=== PATIENT | female | born 1960 | race African-American/Black ===

== ENCOUNTER 2018-11-15 17:38 | Emergency (ER) | payer MEDICAID, OTHER ==
[~2018-11-15] VITALS: Ht 160 cm; Wt 108.9 kg
--- NOTE | 2018-11-15 17:48 | NUR ---
CALLED IN WAITING ROOM. NO ANSWER.
--- NOTE | 2018-11-15 18:02 | NUR ---
"C/O OF DEPRESSION, SI W/ PLAN OF CUTTING WRIST X 2 WEEKS" PT TO BED 13, -SOB, NAD NOTED, VSS, PENDING MD BENJAMIN
--- NOTE | 2018-11-15 18:10 | NUR ---
S/I PRECAUTIONS STARTED, SITTER AT BEDSIDE FOR SAFETY.
[2018-11-15 19:08] LABS: BASOPHILS # (AUTO) 0.1 /CMM (0.0-0.2); BASOPHILS % (AUTO) 0.6 % (0.0-2.0); EOSINOPHILS % (AUTO) 0.1 % (0.0-6.0); HEMATOCRIT 37 % (33-45); HEMOGLOBIN 12.2 g/dL (11.5-14.8); LYMPHOCYTES # (AUTO) 0.9 /CMM (0.8-4.8); LYMPHOCYTES % (AUTO) 8.4 % (20.0-44.0); MEAN CORPUSCULAR HGB CONC 33 g/dl (31.0-36.0); MEAN CORPUSCULAR VOLUME 94 fL (82-100); MONOCYTES # (AUTO) 0.7 /CMM (0.1-1.30); MONOCYTES % (AUTO) 6.5 % (2.0-12.0); NEUTROPHILS % (AUTO) 84.4 % (43.0-81.0); PLATELET COUNT (AUTO) 219 /CMM (150-450); RED BLOOD CELL COUNT(AUTO) 3.96 MIL/uL (4.0-5.2); WHITE BLOOD COUNT (AUTO) 10.6 K/uL (4.3-11.0)
[2018-11-15 19:16] LABS: CALCIUM, SERUM 8.6 mg/dL (8.5-10.1); CARBON DIOXIDE 27 mmol/L (21-32); CHLORIDE 106 mmol/L (98-107); CREATININE 0.8 mg/dL (0.6-1.3); GLUCOSE 132 mg/dL (74-106); POTASSIUM 3.5 mmol/L (3.5-5.1); SODIUM SERUM 141 mmol/L (136-145); UREA NITROGEN, BLOOD 15 mg/dL (7-18)
[2018-11-15 19:30] LABS: ALANINE AMINOTRANSFERASE 25 U/L (12-78); ALBUMIN 3.1 g/dL (3.4-5.0); ALKALINE PHOSPHATASE 53 U/L (46-116); ASPARTATE AMINOTRANSFERASE 14 U/L (15-37); BILIRUBIN,DIRECT 0.1 mg/dL (0.0-0.2); BILIRUBIN,TOTAL 0.2 mg/dL (0.2-1.0); TOTAL PROTEIN, SERUM 5.8 g/dL (6.4-8.2)
[2018-11-15 19:33] LABS: ACETAMINOPHEN < 2 ug/ml (10-30); ALCOHOL, BLOOD < 3 mg/dL (0-0); SALICYLATE < 2.8 mg/dL (2.8-20.0)
[2018-11-15 20:10] LABS: APPEARANCE,URINE CLEAR (CLEAR); BILIRUBIN,URINE NEGATIVE (NEGATIVE); BLOOD, URINE NEGATIVE Ery/uL (NEGATIVE); COLOR,URINE YELLOW (YELLOW); KETONES,URINE NEGATIVE (NEGATIVE); LEUKOCYTE ESTERASE ,URINE NEGATIVE (NEGATIVE); NITRITE, URINE NEGATIVE (NEGATIVE); PROTEIN,URINE NEGATIVE (NEGATIVE); UGLUCOSE NEGATIVE (NEGATIVE)
[2018-11-15 20:33] LABS: BACTERIA,URINE 1+ /HPF (None Seen); CALCIUM OXALATE CRYSTALS,UR Few /HPF (None Seen); SQUAMOUS EPITHELIAL CELL,UR 0-2 /HPF (None Seen); WBC,URINE 0-2 /HPF (0-3)
--- NOTE | 2018-11-16 04:48 | NUR ---
PT SLEEPING IN [place]. NO SIGNS OF DISTRESS NOTED. PT VITAL SIGNS STABLE. WILL CONT TO MONITOR PT.
--- NOTE | 2018-11-16 12:24 | NUR ---
CALLED FOR FOOD TRAY
--- NOTE | 2018-11-16 13:15 | NUR ---
PER INTAKE ETELVINA PT CANNOT BE ACCEPTED AT [facility] DUE TO MEDICAL HX, SHE WILL CONTACT [facility] WITH TRANSFER REQUEST AND CALL [facility] BACK
[2018-11-16] MEDS ORDERED: ALBUTEROL FS 2.5 MG/3 ML VIAL.NEB NEB ONE (13:30)
[2018-11-16] MEDS ORDERED: ALBUTEROL FS 2.5 MG/3 ML VIAL.NEB ONE (13:38)
--- NOTE | 2018-11-16 15:07 | NUR ---
PT ACCEPTED AT [facility] ACCEPTED BY DR ROSE, RN FOR REPORT [phone] CHRIS URBAN
--- NOTE | 2018-11-16 16:54 | NUR ---
[facility] TO [facility] ETA [id number] TRIP #[id number]
--- NOTE | 2018-11-16 17:05 | NUR ---
REPORT GIVEN TO DILIP FROM [facility].
[2018-11-16 18:02] VITALS: BP 152/83
--- NOTE | 2018-11-16 18:03 | NUR ---
REPORT NEW LAST B/P TO CHRIS URBAN AURIST AT [facility]
--- NOTE | 2018-11-16 18:15 | NUR ---
PT LEFT TO [facility] VIA PRIVATE AMBULANCE, REPORT GIVEN TO STAFFF ,PT LEFT IN STABLE CONDITION, VSS, NAD NOTED.
== END 2018-11-16 18:15 ==
LOC: ER 17:39
DX: T40.5X2A Poisoning by cocaine, intentional self-harm, initial encounter (principal); R45.851 Suicidal ideations; F32.9 Major depressive disorder, single episode, unspecified; F17.200 Nicotine dependence, unspecified, uncomplicated; F12.10 Cannabis abuse, uncomplicated; J45.909 Unspecified asthma, uncomplicated; I10 Essential (primary) hypertension; F10.10 Alcohol abuse, uncomplicated; Y90.0 Blood alcohol level of less than 20 mg/100 ml; Z98.890 Other specified postprocedural states; Z59.0 Homelessness; Y92.89 Other specified places as the place of occurrence of the external cause
CPT/HCPCS: 36415; 80048; 80076; 80305; 80307; 80329; 81001; 85025; 94640; 99285; G0480; 81000-TC